=== PATIENT | female | born 2000 | race Caucasian/White ===

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

== ENCOUNTER 2024-06-27 20:06 | Emergency (ER) | payer OTHER, SELFPAY ==
[2024-06-27 20:08] VITALS: BP 128/82; PULSE 89; RESP 18; TEMP 36.4; O2SAT 99; BMI 26.5
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
[2024-06-27] MEDS: Albuterol Sulfate 8 gm Inhaler (60 puffs) 2 PUFF INHALATION (20:44)
[2024-06-27 21:07] VITALS: BP 112/77; PULSE 98; RESP 18; TEMP 36.6; O2SAT 99
== END 2024-06-27 21:11 | disposition home or self-care (01) ==
LOC: ED 21:05
PROVIDERS: Emergency Provider Emergency Medicine; Visit Provider Emergency Medicine
DX: R06.02 Shortness of breath (principal)
CPT/HCPCS: 99282